=== PATIENT | female | born 1990 | race American Indian/Alaskan Native ===

== ENCOUNTER 2023-10-11 18:48 | Emergency (ER) | payer OTHER, SELFPAY ==
[2023-10-11 19:00] VITALS: BP 125/67; PULSE 92; RESP 16; TEMP 36.6; O2SAT 96; BMI 37.0
--- NOTE | 2023-10-11 19:07 | DI.RAD.S_ITS ---
PROCEDURE: XR KNEE RT 3V INDICATIONS: pain after fall TECHNIQUE: 2 views of the knee were acquired. COMPARISON: None. FINDINGS: Bones: No acute displaced fracture. No dislocation. Soft tissues: Prepatellar and suprapatellar soft tissue swelling. No significant intra-articular effusion. IMPRESSION: Soft tissue swelling is present. No acute displaced fracture or dislocation. If there is high concern for occult injury, consider repeat radiography or cross-sectional imaging. Dictated by: Ric Walden M.D. on 10/11/2023 at 19:36 Approved by: Ric Walden M.D. on 10/11/2023 at 19:36
--- NOTE | 2023-10-11 20:10 | ED_ITS ---
HPI - Extremity Injury (Lower) General Chief Complaint: Extremity Injury, Lower Stated Complaint: rt knee injury Time Seen by Provider: 10/11/23 20:04 Source: patient Mode of arrival: Ambulatory History of Present Illness HPI Narrative: 32-year-old female presents for right knee pain. Patient states that she fell on concrete steps and landed on her right knee. She was seen at a walk-in clinic where she received 2 stitches and was discharged home with crutches. She states that she feels like if she bends her knee it will give out. Denies numbness or weakness. Related Data Previous Rx's Medication Instructions Recorded hydrocodone 5 mg-acetaminophen 325 1 tab PO Q8H PRN pain #7 tabs 10/11/23 mg tablet Allergies Allergy/AdvReac Type Severity Reaction Status Date / Time No Known Drug Allergies Allergy Verified 10/11/23 20:20 Review of Systems Review of Systems Narrative: See HPI Patient History Social History Smoking Status: Current every day smoker Smoking Status: Current every day smoker tobacco type: cigarettes Substance Use Type: does not use Exam Initial Vital Signs Initial Vital Signs: Vital Signs Temperature 97.9 F 10/11/23 19:00 Pulse Rate 92 H 10/11/23 19:00 Respiratory Rate 16 10/11/23 19:00 Blood Pressure 125/67 10/11/23 19:00 Pulse Oximetry 96 10/11/23 19:00 Oxygen Delivery Method Room Air 10/11/23 19:00 Const: Awake, alert, no acute distress, nontoxic appearing MSK: Generalized tenderness over right knee without deformity, no obvious patellar or quadriceps tendon deformity. Patient locked knee when ROM attempted and did not allow ROM testing Skin: Warm, Dry, R Knee sutures clean, dry, intact Neuro: AO x3, CN II-XII grossly intact, moves all extremities Course Orders Ordered: Discontinued Medications Hydrocodone Bitart/Acetaminophen (Hydrocodone/Acet 5/325 Tablet) 1 tab PO NOW ONE Stop: 10/11/23 20:11 Last Admin: 10/11/23 20:24 Dose: 1 tab Documented By: SELENA Vital Signs Vital signs: Vital Signs - 8 hr 10/11/23 19:00 Temperature 97.9 F Pulse Rate 92 H Respiratory Rate 16 Blood Pressure 125/67 Pulse Oximetry 96 Oxygen Delivery Method Room Air MDM - Extremity Injury (Lower) Differential Diagnosis Differential diagnosis: Likely ankle sprain and strain, acute internal derangement of knee and fracture of femur Imaging Data Extremity x-ray #1: Radiologist's Impression: PROCEDURE: XR KNEE RT 3V INDICATIONS: pain after fall TECHNIQUE: 2 views of the knee were acquired. COMPARISON: None. FINDINGS: Bones: No acute displaced fracture. No dislocation. Soft tissues: Prepatellar and suprapatellar soft tissue swelling. No significant intra-articular effusion. IMPRESSION: Soft tissue swelling is present. No acute displaced fracture or dislocation. If there is high concern for occult injury, consider repeat radiography or cross- sectional imaging. Dictated by: Ric Walden M.D. on 10/11/2023 at 19:36 Approved by: Ric Walden M.D. on 10/11/2023 at 19:36 [facility] Narrative Medical decision making narrative: Knee pain and swelling after falling yesterday. Range of motion unable to be performed as patient looks her knee when joint is attempted to be moved and we will not allow testing to be done. No obvious deformity or abnormality other than the kneecap laceration that has since been repaired. X-rays negative for acute findings. Patient requested pain medications because Tylenol and ibuprofen are not helping enough, a short prescription was sent to pharmacy of choice. Patient also requested a note for work, which was provided. Discharge Plan Departure Patient Disposition: Home Clinical Impression: Knee sprain Instructions: DI for Knee Sprain Activity Restrictions/Additional Instructions: Wear the knee immobilizer for support. Continue to use crutches as given to you by the clinic. Continue to take Tylenol and ibuprofen as needed for pain, apply ice to areas of swelling, keep the limb elevated. Do not take more than 4000 mg of Tylenol at a time Prescriptions: New hydrocodone-acetaminophen 5-325 mg tablet 1 tab PO Q8H PRN (Reason: pain) Qty: 7 0RF Referrals: Mya Benz PA-C [Primary Care Provider] - Stand Alone Forms: Patient Portal/API, Work Release Note
[2023-10-11] MEDS: HYDROCODONE/ACET 5/325 TABLET 1 TAB PO (20:24)
== END 2023-10-11 20:27 | disposition home or self-care (01) ==
PROVIDERS: Emergency Provider Emergency Medicine; PCP Physician Assistant
DX: S83.91XA Sprain of unspecified site of right knee, initial encounter (principal); W10.9XXA Fall (on) (from) unspecified stairs and steps, initial encounter
CPT/HCPCS: 73562; 99283